=== PATIENT | female | born 1950 | race Caucasian/White ===

== ENCOUNTER 2016-07-26 12:12 | Emergency (ER) | payer OTHER ==
[~2016-07-26] VITALS: Ht 157.5 cm; Wt 79.0 kg
[~2016-07-26 12:12] MED LIST: ADVIN25/60 INH; ALBUAER2 INH; ASPI81TA28 PO; CARV3.122 PO; CHOL100010 PO; CLX20 PO; FURO-85 PO; LOSA50TA6 PO; OMEP40CA PO
[2016-07-26 12:15] VITALS: TEMP 37.1; Ht 157.5 cm; Wt 79.0 kg
[2016-07-26] MEDS ORDERED: LOSA1TAB PO (12:29)
[2016-07-26] MEDS ORDERED: TPRSR/25 PO (12:29)
--- NOTE | 2016-07-26 12:38 | EMERGENCY ROOM VISIT NOTE ---
ED Visit Note First contact with patient: 12:21 CHIEF COMPLAINT: Ankle pain HISTORY OF PRESENT ILLNESS: This 65-year-old female patient presents to the emergency department ambulatory after sustaining an injury to the right ankle with a twisting, inversion motion when she tripped over this spouting yesterday at home. Complains of moderate swelling and pain. The patient complains of pain along the outside of the ankle. The patient does not have pain of the foot. The patient rates the pain as sharp and 8/10. There was no audible pop. The patient is not able to bear weight on the foot. Constant pain, worse with movement, weight bearing, and the dependent position. No knee pain, the patient is able to move their toes. No numbness or weakness of the foot, no laceration. The patient has none had a previous injury to this ankle. The patient has taken Tylenol for the pain. The patient denies any other injury. REVIEW OF SYSTEMS: A 6 system review of systems was completed with positives and pertinent negatives listed in the HPI. ALLERGIES: Adhesives, Macrobid MEDICATIONS: See nursing notes PMH: Pacemaker SOCIAL HISTORY: The patient does not smoke. She lives locally PHYSICAL EXAM: Vital Signs: Reviewed Nurse's notes, vital signs stable. GENERAL : This is a 65-year-old female, no acute distress, but appears in pain, well- developed, well-nourished. MENTAL STATUS: Alert, oriented to person place and time, and cooperative. MUSCULOSKELETAL: The right ankle is swollen and tender over the lateral malleolus, but the skin is intact and there is no ligamentous instability. There is no fifth metatarsal tenderness. There is no tenderness over the rest of the foot. There is no calf or tibia/fibular tenderness. There is no visual deformity. The foot and toes are warm and well-perfused. Dorsalis pedis pulse 2+. Sensation to pain and light touch is intact. Capillary refill less than 2 seconds. EMERGENCY DEPARTMENT COURSE: I examined the patient. She declined pain medication. X-rays of the right ankle were reviewed by myself and read by radiology and reveal a distal fibula fracture and small avulsion to the medial malleolus. The ankle mortise appears to be intact. A posterior leg and stirrup Ortho-Glass splint was applied to the ankle under my direction and the position was satisfactory. Neurovascular status was rechecked and intact. The patient would not do well on crutches. She states she has a walker at home. The patient declined pain medication for home. She should contact orthopedics first thing Thursday to schedule a follow-up appointment. The patient was discharged home in good condition. RIGHT ANKLE MIN 3 VIEWS ROUTINE CLINICAL HISTORY: Right ankle pain status post trauma COMPARISON: None. DISCUSSION: There is a medial malleolar tip avulsion.. There is an acute nondisplaced oblique fracture of the distal fibula. The ankle mortise appears intact on these nonstress views. There is mild soft tissue swelling. There are calcaneal spurs IMPRESSION: 1. Acute nondisplaced oblique fracture of the distal fibula 2. Medial malleolar tip avulsion 3. No evidence of ankle mortise disruption Problem List Medical Problems: (1) COPD, very severe Status: Chronic (2) Depression Status: Chronic (3) Esophageal reflux Status: Chronic (4) LBBB (left bundle branch block) Status: Chronic (5) Nonischemic cardiomyopathy Permanent Comment: EF 15-20% by echo 09/16/2015 Status: Chronic Surgical Problems: (1) History of cholecystectomy Permanent Comment: 1995 Status: Resolved (2) History of hysterectomy Permanent Comment: partial hysterectomy Status: Resolved (3) S/P cardiac catheterization Permanent Comment: Aug 23, 2015- Normal Coronary Arteries Status: Chronic Current/Historical Medications Scheduled Aspirin (Aspirin Ec), 81 MG PO QAM Cholecalciferol (Vitamin D), 1,000 INTER.UNIT PO QAM Citalopram (Celexa *), 20 MG PO QAM Fluticasone Prop/Salmeterol (Advair Diskus 250/50 60 Dose), 1 PUFF INH BID Furosemide (Lasix), 20 MG PO QAM Losartan Potassium (Cozaar), 12.5 MG PO QAM Metoprolol Succinate (Metoprolol Succinate ER), 25 MG PO QAM Omeprazole (Prilosec), 40 MG PO QAM Scheduled PRN Albuterol (Ventolin Hfa), 2 PUFFS INH DAILY PRN for SOB/Wheezing Allergies Coded Allergies: Adhesives (Unverified Allergy, Unknown, pruritis and redness with tape , ) Nitrofurantoin (Verified Adverse Reaction, Unknown, "BURNING WITH URINATION", 3/11/17) Vital Signs Date Time Temp Pulse Resp B/P Pulse Ox O2 Delivery O2 Flow Rate FiO2 07/26/16 13:37 76 16 145/77 96 07/26/16 12:15 37.1 82 20 158/85 95 Room Air Departure Information Impression Primary Impression: Fracture of distal end of right fibula Additional Impression: Medial malleolar fracture Dispostion Home / Self-Care Condition GOOD Referrals Tyler Gore M.D. (PCP) Óscar Botello D.O. Patient Instructions [facility] Additional Instructions Tylenol according to package instructions for pain Wear the splint until seen by orthopedics. Do not get the splint wet. Use the walker and tried to minimize weightbearing on the foot. Contact orthopedics first thing in the morning to schedule a follow-up appointment. Ice frequently over the next 24-48 hours. Return with any worsening symptoms. Problem Qualifiers Primary Impression: Fracture of distal end of right fibula Encounter type: initial encounter Fracture type: closed Additional Impression: Medial malleolar fracture Encounter type: initial encounter Fracture type: closed Fracture alignment : nondisplaced Laterality: right Qualified Codes: S82.54XA - Nondisplaced fracture of medial malleolus of right tibia, initial encounter for closed fracture
--- NOTE | 2016-07-26 12:46 | DIAGNOSTIC IMAGING REPORT ---
RIGHT ANKLE MIN 3 VIEWS ROUTINE CLINICAL HISTORY: Right ankle pain status post trauma COMPARISON: None. DISCUSSION: There is a medial malleolar tip avulsion.. There is an acute nondisplaced oblique fracture of the distal fibula. The ankle mortise appears intact on these nonstress views. There is mild soft tissue swelling. There are calcaneal spurs IMPRESSION: 1. Acute nondisplaced oblique fracture of the distal fibula 2. Medial malleolar tip avulsion 3. No evidence of ankle mortise disruption Electronically signed by: Jose Mckenzie M.D. 07/26/2016 12:44 PM Dictated Date/Time: 07/26/2016 12:43 PM
[2016-07-26 13:37] VITALS: BP 145/77; PULSE 76; O2SAT 96
== END 2016-07-26 13:39 | disposition home or self-care (01) ==
LOC: C.EDB 12:14 → C.EDD 13:39
DX: S82.54XA Nondisplaced fracture of medial malleolus of right tibia, initial encounter for closed fracture (principal); J44.9 Chronic obstructive pulmonary disease, unspecified; K21.9 Gastro-esophageal reflux disease without esophagitis; F32.9 Major depressive disorder, single episode, unspecified; Z79.899 Other long term (current) drug therapy; Z79.82 Long term (current) use of aspirin; Z95.0 Presence of cardiac pacemaker; W22.8XXA Striking against or struck by other objects, initial encounter; Y92.009 Unspecified place in unspecified non-institutional (private) residence as the place of occurrence of the external cause; Y99.8 Other external cause status